=== PATIENT | female | born 1975 | race Caucasian/White ===

== ENCOUNTER 2016-07-02 00:50 | Emergency (ER) | payer BC ==
[~2016-07-02] VITALS: Ht 157.5 cm; Wt 58.6 kg
[~2016-07-02 00:50] MED LIST: MAGN250T3 PO; MISCCAP80 PO; MULTTAB58 PO
[2016-07-02 01:02] VITALS: TEMP 36.7; Ht 157.5 cm; Wt 58.6 kg
[2016-07-02] MEDS ORDERED: HYDROmorphone INJ 0.5 MG/0.5 ML SYR IV STA (01:10)
[2016-07-02] MEDS ORDERED: METOCLOPRAMIDE HCL INJ 5 MG/ML 2 ML VIAL IV STA (01:10)
[2016-07-02] MEDS ORDERED: ALUMINUM/MAGNESIUM SUSP 30 ML UDC PO STA (01:10)
[2016-07-02] MEDS ORDERED: SODIUM CHLORIDE 0.9% 1000ML 1,000 ML IV STA ×2 (01:10)
[2016-07-02] MEDS ORDERED: LIDOCAINE HCL 2% VISC SOLN 20 ML UDC PO STA (01:10)
[2016-07-02] MEDS ORDERED: AMIT10TA6 PO (01:42)
[2016-07-02] MEDS ORDERED: OPTIRAY 320 IV PRN (01:45)
[2016-07-02 01:46] LABS: BASO % 0.5 %; BASO ABS # 0.03 K/uL (0-0.2); COMPLETE YES; EOS % 1.9 %; HEMATOCRIT 38.6 % (37-47); LYMPH ABS # 0.74 K/uL (1.2-3.4); MEAN CELL VOLUME 88.9 fL (80-100); MEAN CORPUSCULAR HEMOGLOBIN 31.3 pg (25-34); MEAN CORPUSCULAR HGB CONC 35.2 g/dl (32-36); MEAN PLATELET VOLUME 9.8 fL (7.4-10.4); MONO % 6.5 %; NEUT % 78.1 %; PLATELET COUNT 203 K/uL (130-400); RED BLOOD COUNT 4.34 M/uL (4.2-5.4); WHITE BLOOD COUNT 5.71 K/uL (4.8-10.8)
[2016-07-02 01:50] VITALS: O2SAT 100
[2016-07-02 02:09] LABS: ALT/SGPT 21 U/L (12-78); AST/SGOT 12 U/L (15-37); BLOOD UREA NITROGEN 19 mg/dl (7-18); BUN/CREATININE RATIO 21.6 (10-20); CALCIUM 8.8 mg/dl (8.5-10.1); CARBON DIOXIDE 26 mmol/L (21-32); CHLORIDE 110 mmol/L (98-107); GLUCOSE 116 mg/dl (70-99); POTASSIUM 4.1 mmol/L (3.5-5.1); SODIUM 143 mmol/L (136-145)
[2016-07-02 02:12] LABS: ALKALINE PHOSPHATASE 56 U/L (45-117)
[2016-07-02 02:28] LABS: URINE APPEARANCE CLOUDY (CLEAR); URINE BILIRUBIN NEG (NEG); URINE COLOR YELLOW; URINE EPITHELIAL CELL AUTO >30 /lpf (0-5); URINE NITRITE NEG (NEG); URINE PH 6.5 (4.5-7.5); URINE SPECIFIC GRAVITY 1.018 (1.000-1.030); UROBILINOGEN NEG (NEG)
[2016-07-02 02:29] LABS: MANUAL MICROSCOPIC REQUIRED? NO; REVIEW REQ? YES
[2016-07-02 02:32] LABS: PREG INTERNAL NEGATIVE QC NEG CLEAR BACKGROUND; PREG INTERNAL POSITIVE QC POS CONTROL LINE
--- NOTE | 2016-07-02 03:21 | EMERGENCY ROOM VISIT NOTE ---
History First contact with patient: 01:07 Chief Complaint: ABDOMINAL PAIN Stated Complaint: SEVERE STOMACH CRAMPS,NAUSEA History of Present Illness The patient is a 41 year old female who presents to the Emergency Room with complaints of nausea, abdominal pain for the past day who is a history of bowel obstructions and symptoms of similar. Patient had multiple abdominal surgeries. She distress and his cramping, ranging in severity 8 out of 10 to the upper abdomen. Patient denies chest pain, dyspnea, fever, chills, vomiting , diarrhea, back pain, urinary symptoms. Nothing makes the pain better or worse. It does not radiate. Review of Systems See HPI for pertinent positives & negatives. A total of 10 systems reviewed and were otherwise negative. Past Medical/Surgical History Medical Problems: (1) Endometriosis (2) Kidney stones (3) Neutropenia (4) Partial small bowel obstruction Surgical Problems: (1) History of appendectomy (2) History of cholecystectomy (3) History of hysterectomy (4) History of tonsillectomy (5) [place] teeth extracted Family History Diabetes mellitus FHx: cancer FHx: heart disease FHx: lung disease Hypertension Seizures Social History Smoking Status: Former Smoker Alcohol Use: occasionally Drug Use: none Marital Status: Occupation Status: employed Current/Historical Medications Scheduled Amitriptyline Hcl (Elavil), 10 MG PO HS Magnesium (Magnesium 250 mg), 1 TAB PO DAILY Multiple Vitamin (Multivitamin), 1 TAB PO DAILY Probiotic Product (Probiotic), 1 CAP PO DAILY Allergies Coded Allergies: No Known Allergies (Unverified , 07/02/16) Physical Exam Vital Signs Date Time Temp Pulse Resp B/P Pulse Ox O2 Delivery O2 Flow Rate FiO2 07/02/16 03:00 68 18 93/65 96 Room Air 07/02/16 01:50 77 07/02/16 01:50 100 Room Air 07/02/16 01:02 36.7 104 20 130/86 98 Room Air Physical Exam VITALS: Vitals are noted on the nurse's note and reviewed by myself. Vital signs stable. GENERAL: Pleasant female, in no acute distress, nondiaphoretic, well-developed well-nourished. SKIN: The skin was without rashes, erythema, edema, or bruising. There is no tenting of the skin. Capillary reflex less than 2 seconds. HEAD: Normocephalic atraumatic. EARS: External auditory canals clear, tympanic membranes pearly tran without erythema or effusion bilaterally. EYES: Pupils equal round and reactive to light and accommodation. Conjunctivae without injection, sclerae without icterus. Extraocular movements intact. NOSE: Patent, turbinates without inflammation or discharge. MOUTH: Mucous membranes moist. Pharynx without erythema or exudate. Uvula midline. Airway patent. Tongue does not deviate. NECK: Supple without nuchal rigidity. No lymphadenopathy. No thyromegaly. Cervical spine is nontender. No JVD. HEART: Regular rate and rhythm without murmurs gallops or rubs. LUNGS: Clear to auscultation bilaterally without wheezes, rales or rhonchi. No dullness to percussion. No retractions or accessory muscle use. ABDOMEN: Positive bowel sounds x 4. Normal tympanic percussion. Soft, tender to palpation periumbilical region, no CVA tenderness, without masses or organomegaly. [place] sign negative. No guarding or rebound tenderness. MUSCULOSKELETAL: No muscle atrophy, erythema, or edema noted. NEURO: Patient was alert and oriented to person place and time. Normal sensation to light and sharp touch. No focal neurological deficits. Medical Decision & Procedures Laboratory Results 07/02/16 01:30 Red Blood Count 4.34, Mean Corpuscular Volume 88.9, Mean Corpuscular Hemoglobin 31.3, Mean Corpuscular Hemoglobin Concent 35.2, Mean Platelet Volume 9.8, Neutrophils (%) (Auto) 78.1, Lymphocytes (%) (Auto) 13.0, Monocytes (%) (Auto) 6.5, Eosinophils (%) (Auto) 1.9, Basophils (%) (Auto) 0.5, Neutrophils # (Auto) 4.46, Lymphocytes # (Auto) 0.74, Monocytes # (Auto) 0.37, Eosinophils # (Auto) 0.11, Basophils # (Auto) 0.03 07/02/16 01:30 Test 07/02/16 01:30 07/02/16 01:38 07/02/16 01:52 White Blood Count 5.71 K/uL (4.8-10.8) Red Blood Count 4.34 M/uL (4.2-5.4) Hemoglobin 13.6 g/dL (12.0-16.0) Hematocrit 38.6 % (37-47) Mean Corpuscular Volume 88.9 fL (80-100) Mean Corpuscular Hemoglobin 31.3 pg (25-34) Mean Corpuscular Hemoglobin Concent 35.2 g/dl (32-36) Platelet Count 203 K/uL (130-400) Mean Platelet Volume 9.8 fL (7.4-10.4) Neutrophils (%) (Auto) 78.1 % Lymphocytes (%) (Auto) 13.0 % Monocytes (%) (Auto) 6.5 % Eosinophils (%) (Auto) 1.9 % Basophils (%) (Auto) 0.5 % Neutrophils # (Auto) 4.46 K/uL (1.4-6.5) Lymphocytes # (Auto) 0.74 K/uL (1.2-3.4) Monocytes # (Auto) 0.37 K/uL (0.11-0.59) Eosinophils # (Auto) 0.11 K/uL (0-0.5) Basophils # (Auto) 0.03 K/uL (0-0.2) RDW Standard Deviation 42.9 fL (36.4-46.3) RDW Coefficient of Variation 13.1 % (11.5-14.5) Immature Granulocyte % (Auto) 0.0 % Immature Granulocyte # (Auto) 0.00 K/uL (0.00-0.02) Anion Gap 7.0 mmol/L (3-11) Est Creatinine Clear Calc Drug Dose 66.4 ml/min Estimated GFR () 93.4 Estimated GFR (Non- 80.5 BUN/Creatinine Ratio 21.6 (10-20) Calcium Level 8.8 mg/dl (8.5-10.1) Total Bilirubin 0.4 mg/dl (0.2-1) Direct Bilirubin < 0.1 mg/dl (0-0.2) Aspartate Amino Transf (AST/SGOT) 12 U/L (15-37) Alanine Aminotransferase (ALT/SGPT) 21 U/L (12-78) Alkaline Phosphatase 56 U/L (45-117) Total Protein 7.0 gm/dl (6.4-8.2) Albumin 4.2 gm/dl (3.4-5.0) Lipase 162 U/L (73-393) Human Chorionic Gonadotropin, Qual NEG (NEG) Bedside Lactic Acid Venous 0.47 mmol/L (0.90-1.70) Urine Color YELLOW Urine Appearance CLOUDY (CLEAR) Urine pH 6.5 (4.5-7.5) Urine Specific [place] 1.018 (1.000-1.030) Urine Protein NEG (NEG) Urine Glucose (UA) NEG (NEG) Urine Ketones 2+ (NEG) Urine Occult Blood NEG (NEG) Urine Nitrite NEG (NEG) Urine Bilirubin NEG (NEG) Urine Urobilinogen NEG (NEG) Urine Leukocyte Esterase NEG (NEG) Urine WBC (Auto) 1-5 /hpf (0-5) Urine RBC (Auto) 0-4 /hpf (0-4) Urine Hyaline Casts (Auto) 1-5 /lpf (0-5) Urine Epithelial Cells (Auto) >30 /lpf (0-5) Urine Bacteria (Auto) 1+ (NEG) Urine Crystals CALCIUM OXALATE (NONE Medications Administered Medications (Trade) Dose Ordered Sig/Kerry Route Start Time Stop Time Status Last Admin Dose Admin Lidocaine HCl (Viscous Lidocaine 2% Soln) 10 ml NOW STAT PO 07/02/16 01:10 07/02/16 01:12 DC 07/02/16 01:46 10 ML Al Hydroxide/Mg Hydroxide (Maalox Susp) 30 ml NOW STAT PO 07/02/16 01:10 07/02/16 01:12 DC 07/02/16 01:46 30 ML Metoclopramide HCl 10 mg 10 mg NOW STAT IV 07/02/16 01:10 07/02/16 01:12 DC 07/02/16 01:47 10 MG Sodium Chloride 1,000 ml @ 999 mls/hr Q1H1M STAT IV 07/02/16 01:10 07/02/16 02:10 DC 07/02/16 01:47 999 MLS/HR Sodium Chloride (Nss 1000ml) 1,000 ml @ 125 mls/hr Q8H STAT IV 07/02/16 01:10 07/02/16 09:09 07/02/16 01:10 125 MLS/HR Hydromorphone HCl (Dilaudid Inj) 0.5 mg NOW STAT IV 07/02/16 01:10 07/02/16 01:13 DC 07/02/16 01:48 0.5 MG ED Course Prior records/ancillary studies reviewed. Triage Nursing notes reviewed. Additional history obtained from family. The patient's history was concerning for abdominal pain. Differential diagnosis: Etiologies such as appendicitis, diverticulitis, PUD, biliary pathology, UTI, pancreatitis, obstruction, mesenteric ischemia, aortic pathology, infections, inflammatory bowel disease, renal colic, as well as others were entertained. Physical examination findings: As above. ER treatment provided: Dilaudid, Zofran, IV fluids On reassessment the patient felt better. Diagnostics interpreted by me: The labs revealed no worrisome leukocytosis. Negative lactic acid. Mild hyperglycemia without DKA Imaging studies: CT ABDOMEN & PELVIS: Compared to CT abdomen and pelvis 02/10/2016 Limited by lack of intra-abdominal fat and lack of oral contrast. The distal small bowel and proximal colon are distended with air and fluid which may be due to ileus or enterocolitis. No evidence of bowel obstruction. The appendix is not reliably identified and may be surgically absent. Cholecystectomy. No CT evidence of acute pancreatitis. No urinary obstruction. Trace pelvic free fluid. No free air. Radiologist: Taisha Stover M.D. Acute abdominal series with no obvious obstruction, free air or pneumothorax per my interpretation Exam and history seem consistent with enterocolitis. Patient felt much better and was able to tolerate fluids. No bowel obstruction. She is advised to rest , stay well-hydrated and to Zofran as needed for nausea. She is advised follow- up with family care in a few days or here in the ER sooner for abdominal pain, fevers, vomiting, worsening signs or symptoms or as needed.By the evaluation outlined above emergent etiologies such as appendicitis, diverticulitis, PUD, biliary pathology, UTI, pancreatitis, obstruction, mesenteric ischemia, aortic pathology, infections, inflammatory bowel disease, renal colic, as well as others were deemed relatively unlikely. The pt informed about the findings as listed above. All questions were answered and pleased with the treatment. Return instructions were outlined and the patient was discharged in stable condition. Outpatient prescription management: zofran Referral: The patient was referred back to their primary care physician for follow-up in 2 to 3 days for a recheck of the current condition. Case reviewed with my attending Medical Decision As above Impression Primary Impression: Enterocolitis Departure Information Dispostion Home / Self-Care Condition GOOD Referrals Pérez Edwards MD (PCP) Patient Instructions My [facility] Additional Instructions DO NOT drive, drink alcohol, operate machinery, or perform dangerous activities today. You were given medications in the ER that can affect your ability to safely function or operate a vehicle. Zofran(odansetron) tablets 4mg: Take one and allow it to dissolve in your mouth every four to six hours as needed for nausea or vomiting. Ibuprofen(Motrin, Advil) may be used for fever or pain. Use 600mg every six hours as needed. Take with food. Avoid using more than 2400mg in a 24 hour period. Do not use 2400mg per day for more than three consecutive days without physician direction. Prolonged inappropriate use can lead to stomach upset or ulcers. (AND/OR) Acetaminophen(Tylenol) may be used for fever or pain. Use 1000mg every six hours as needed. Avoid using more than 3000mg in a 24 hour period. Rest and drink plenty of fluids as tolerated. Slow sips of water or sports drinks are recommended instead of large amounts all at once. Continue current medications. Once your stomach is settled start with a clear liquid diet (jello, soup broth, etc.) and then advance as tolerated. You should avoid full, heavy meals for about 24 hrs from the time your symptoms resolved. Return to the ER for persistent vomiting, fevers, abdominal pain, chest pains, difficulty breathing, black or bloody stools, worsening of your condition, or as needed. Follow up with your primary physician in 2-3 days for a recheck of your current condition.
[2016-07-02] MEDS ORDERED: ONDANSETRON HOME PACK 4MG OD TAB PO ONE (03:30)
[2016-07-02] MEDS ORDERED: OXYCODONE IR HOME PACK PO ONE (03:30)
[2016-07-02 03:35] VITALS: BP 111/69; PULSE 95; O2SAT 98
--- NOTE | 2016-07-02 08:04 | DIAGNOSTIC IMAGING REPORT ---
CT SCAN OF THE ABDOMEN AND PELVIS WITH IV CONTRAST CLINICAL HISTORY: Generalized abdominal pain. COMPARISON STUDY: Abdominal CT dated 02/10/2016. TECHNIQUE: Following the IV administration of 93 cc of Optiray 320, CT scan of the abdomen and pelvis is performed from the lung bases to the proximal femora. Images are reviewed in the axial, sagittal, and coronal planes. IV contrast was administered without complication. Automated dose control exposure was utilized. CT DOSE: 270.53 mGy.cm FINDINGS: Lung bases: The heart is normal in size and without pericardial effusion. There is a tiny fat-containing Bochdalek hernia at the right lung base. The lung bases are otherwise clear. Liver: The contrast-enhanced liver is normal in size, contour, and attenuation. There is no intrahepatic biliary ductal dilatation. The hepatic veins and portal veins are patent. Gallbladder: Surgically absent noting clips in the gallbladder fossa. Spleen: Normal in size and attenuation. Pancreas: Unremarkable. Adrenal glands: Unremarkable. Kidneys: The contrast enhanced kidneys are normal in size and without hydronephrosis. The kidneys enhance symmetrically. A 10 mm hypodensity in the lower pole the right kidney likely absence a cyst but is too small for definitive characterization. Abdominal vasculature: The abdominal aorta is normal in course and caliber. Bowel: The small bowel and colon are normal in course and caliber. There is moderate colonic fecal retention. Liquid stool is noted in the right colon. The appendix is not identified and reported surgically absent. Peritoneum: There is no intraperitoneal free air or abdominal ascites. There is a small fat-containing umbilical hernia. Lymphadenopathy: None. Pelvic viscera: The bladder is partially decompressed and grossly unremarkable. The uterus is surgically absent. No adnexal lesion is seen. There is a small volume of free fluid in the cul-de-sac. Skeletal structures: No lytic or blastic lesions are seen. IMPRESSION: 1. There is liquid stool noted throughout the right colon. Correlate clinically for evidence of a diarrheal illness. 2. Status post hysterectomy, cholecystectomy, and appendectomy. 3. There is free fluid in the cul-de-sac, likely within physiologic limits. Electronically signed by: Aneesh Cao M.D. 07/02/2016 8:02 AM Dictated Date/Time: 07/02/2016 7:57 AM
--- NOTE | 2016-07-02 08:20 | DIAGNOSTIC IMAGING REPORT ---
CHEST AND ABDOMEN 2 VIEWS HISTORY: Generalized abdominal pain. COMPARISON: [facility] 02/12/2016. FINDINGS: The lungs are clear. The cardiomediastinal silhouette is within normal limits. There is no pneumoperitoneum or pneumatosis. No pathologic calcifications. Cholecystectomy. Multiple small fluid levels throughout the nondistended colon. There are few borderline dilated air and fluid-filled loops of small bowel within the left upper quadrant. IMPRESSION: 1. No acute process within the chest. 2. Borderline dilated air and fluid-filled loops of small bowel within the left upper quadrant. There are also multiple fluid levels throughout the nondistended colon. This is nonspecific and could represent a mild ileus or gastroenteritis. Electronically signed by: Eliot Fabian M.D. 07/02/2016 8:18 AM Dictated Date/Time: 07/02/2016 8:15 AM
== END 2016-07-02 03:35 | disposition home or self-care (01) ==
LOC: C.EDB 00:52
DX: K52.9 Noninfective gastroenteritis and colitis, unspecified (principal); Z90.49 Acquired absence of other specified parts of digestive tract; Z87.891 Personal history of nicotine dependence

== ENCOUNTER → 2017-05-31 | Outpatient (CLI) | payer BC ==
[~2017-05-31] MED LIST changes: +AMIT10TA6 PO
--- NOTE | 2017-05-31 10:21 | DIAGNOSTIC IMAGING REPORT ---
[facility] CLINICAL HISTORY: 42 years-old Female presenting with R10.9,Z87.19, history of small bowel obstruction, abdominal pain over the past couple days, history of multiple abdominal surgeries. TECHNIQUE: Single supine view of the abdomen was obtained. COMPARISON: 07/02/[address] from 07/02/2016. FINDINGS: Gas noted throughout the large bowel. No evidence of bowel obstruction. No gross evidence of pneumoperitoneum. Cholecystectomy clips noted. Allowing for bowel gas and stool, no calcifications project over the renal shadows to suggest calculi. No calcifications along the course of the ureters. Osseous structures normal. Lung bases clear. IMPRESSION: 1. No acute intra-abdominal pathology. Electronically signed by: Jethro Denis M.D. 05/31/2017 10:20 AM Dictated Date/Time: 05/31/2017 10:18 AM
[2017-05-31 10:26] LABS: MEAN CELL VOLUME 91.3 fL (80-100); MEAN CORPUSCULAR HEMOGLOBIN 32.2 pg (25-34); MEAN CORPUSCULAR HGB CONC 35.3 g/dl (32-36); MEAN PLATELET VOLUME 9.6 fL (7.4-10.4); PLATELET COUNT 193 K/uL (130-400); RED BLOOD COUNT 4.38 M/uL (4.2-5.4); WHITE BLOOD COUNT 1.37 K/uL (4.8-10.8)
[2017-05-31 10:42] LABS: ALT/SGPT 14 U/L (12-78); AST/SGOT 9 U/L (15-37); BLOOD UREA NITROGEN 14 mg/dl (7-18); BUN/CREATININE RATIO 14.8 (10-20); CALCIUM 9.1 mg/dl (8.5-10.1); CARBON DIOXIDE 25 mmol/L (21-32); CHLORIDE 107 mmol/L (98-107); CREATININE 0.95 mg/dl (0.60-1.20); GLUCOSE 83 mg/dl (70-99); SODIUM 138 mmol/L (136-145)
[2017-05-31 10:44] LABS: ALB/GLOB RATIO 1.2 (0.9-2); ALKALINE PHOSPHATASE 57 U/L (45-117)
[2017-05-31 10:57] LABS: BASO % 2.9 %; BASO ABS # 0.04 K/uL (0-0.2); COMPLETE YES; EOS % 3.6 %; LYMPH % 56.2 %; LYMPH ABS # 0.77 K/uL (1.2-3.4); MONO % 18.2 %; NEUT % 19.1 %
== END | disposition home or self-care (01) ==
LOC: C.RAD 09:25
PROVIDERS: ATTEND Nurse Practitioner Family
DX: R10.9 Unspecified abdominal pain (principal); Z87.19 Personal history of other diseases of the digestive system

== ENCOUNTER → 2017-06-14 | Outpatient (CLI) | payer BC ==
--- NOTE | 2017-06-15 15:00 | MAMMOGRAPHY REPORT ---
BILATERAL DIGITAL DIAGNOSTIC MAMMOGRAM TOMOSYNTHESIS WITH CAD AND TARGETED LEFT ULTRASOUND: 06/14/2017 CLINICAL HISTORY: 42-year-old woman presents with a palpable lump in the left retroareolar breast. F amily history of breast cancer = mother (premenopausal). TECHNIQUE: Bilateral breast tomosynthesis in addition to standard 2D mammography was performed. Curre nt study was also evaluated with a Computer Aided Detection (CAD) system. COMPARISON: Comparison is made to exams dated: 01/09/2015 ultrasound, 01/09/2015 mammogram, and 12/18/19 15 mammogram - [facility]. BREAST COMPOSITION: The tissue of both breasts is heterogeneously dense, which may obscure small mass es. FINDINGS: A triangle shaped palpable marker overlies the 4:00 periareolar/retroareolar left breast, d enoting the palpable lump pointed out by the patient. There are multiple bilateral partially circums cribed and obscured masses in both breasts, the largest of which are seen in the left upper outer erika drant. In the area of palpable concern in the anterior, retroareolar left breast, there is a possibl e 2.3 cm mass. Loosely grouped microcalcifications are are scattered bilaterally, most numerous in t he 6:00 axes of each breast. Previous spot magnification views demonstrated layering of nearly all o f the microcalcifications, confirming benign milk of calcium. No obvious spiculated or irregular mas s, focal area of architectural distortion or new suspicious calcifications are seen. Real-time high-resolution sonographic evaluation was performed in the area of palpable lump pointed o ut by the patient, within the 4:00 periareolar/retroareolar left breast. There is a circumscribed, o jinny, nearly anechoic 23.7 x 14.2 x 24.4 mm mass with posterior acoustic enhancement and numerous inte rnal mobile punctate reflectors likely representing debris. This is most compatible with a complicat ed cyst. Additional scanning performed throughout the left lateral breast demonstrates numerous josey tional completely anechoic cysts. In particular, in the 1:00 left breast, 4 cm from the nipple, ther e is a lobulated anechoic parallel cyst measuring 21.2 x 7.5 x 17.6 mm. Another large oval parallel anechoic cyst in the 2:00 left breast, 7 cm from the nipple, measures 28.1 x 7.7 x 31.4 mm. This cys t has an internal nonvascular septation. In the 2:00 left breast, 2 cm from the nipple, there is a s uperficial oval parallel anechoic cyst measuring 11.9 x 6.2 mm, and in the 1:00 left breast, 1 cm fro m the nipple a predominately anechoic cyst within internal nonvascular septation measures 18.1 x 6.5 mm. A few other subcentimeter cysts are also seen in the lower outer quadrant of the left breast. IMPRESSION: ACR BI-RADS CATEGORY 4: SUSPICIOUS, TARGETED ULTRASOUND ACR BI-RADS CATEGORY 4: SUSPICIO US 1. The palpable lump in the anterior retroareolar left breast correlates with a probable complicated cyst on ultrasound measuring 24.4 mm. The internal punctate reflectors within the suspected cyst ar e seen to be mobile on real-time ultrasound, but definitive characterization with ultrasound guided c yst aspiration and analysis of the fluid is recommended. 2. There are other anechoic cysts scattered throughout the left breast on ultrasound, and circumscri bed masses bilaterally seen mammographically, most likely representing benign fibrocystic changes and numerous bilateral cysts. 3. There is no mammographic evidence of malignancy in the right breast. These results and recommendations were discussed with the patient at the time of the exam. She tenta tively scheduled the left breast cyst aspiration prior to leaving our department. Approximately 10% of breast cancers are not detected with mammography. A negative mammographic report should not delay biopsy if a clinically suggestive mass is present. Yohana Rojas M.D. ay/:06/14/2017 14:04:39 Maintainability Engineer: Kecia LÓPEZ(Richard)(M), [facility] letter sent: Abnormal 4/5 BI-RADS Code: ACR BI-RADS Category 4: Suspicious Ultrasound BI-RADS: ACR BI-RADS Category 4: Suspici ous
== END | disposition home or self-care (01) ==
LOC: C.MAMM 10:37
PROVIDERS: ATTEND Nurse Practitioner
DX: N63.20 Unspecified lump in the left breast, unspecified quadrant (principal)

== ENCOUNTER → 2017-06-16 | Outpatient (CLI) | payer BC ==
--- NOTE | 2017-06-16 12:45 | MAMMOGRAPHY REPORT ---
ASPIRATION LEFT BREAST: 06/16/2017 CLINICAL HISTORY: Patient presents for aspiration of a palpable cyst with suspected internal debris i n the 4:00 retroareolar left breast. COMPARISON: Comparison is made to exams dated: 06/14/2017 ultrasound, 06/14/2017 mammogram, 01/09/2015 ul trasound, 01/09/2015 mammogram, and 12/17/2014 mammogram - [facility]. PATIENT CONSENT: After explaining the risks, benefits and alternatives of the procedure to the patien t, informed consent was obtained verbally and in writing. Specific risks include: bleeding, infection and puncture of adjacent structure. A time out was preformed and the left breast was agreed as the s ite for cyst aspiration. PROCEDURE DESCRIPTION: The hypoechoic cystic appearing mass with probable internal debris in the 4:00 retroareolar left breast was identified. 1% lidocaine was administered subcutaneously and intraparen chymally as local anesthesia. A 22 gauge needle was advanced to the site of the mass. Aspiration was preformed and the mass resolved completely, confirming cystic nature. The fluid was clear and straw- colored. It was sent to the pathology department for cytologic analysis. Postprocedure left CC and ML tomosynthesis images were obtained, which demonstrated resolution of the previously observed palpable mass in the 4:00 subareolar left breast. IMPRESSION: ASPIRATION Status post aspiration to resolution of a palpable mass, suspected complicated cyst with internal barbra ris, in the 4:00 retroareolar left breast. The fluid was sent to the pathology department for cytolo gic analysis. The patient will receive notification of the results from her referring physician. Pending benign cy tology, recommend bilateral screening tomosynthesis mammography in one year. Yohana Rojas M.D. ay/:06/16/2017 10:01:45 Online [employer] F[employer] Coach: Kecia RAMÍREZ)(Gautam), [facility]
--- NOTE | 2017-06-16 12:45 | MAMMOGRAPHY REPORT ---
UNILATERAL LEFT DIGITAL DIAGNOSTIC MAMMOGRAM TOMOSYNTHESIS: 06/16/2017 CLINICAL HISTORY: Status post ultrasound guided cyst aspiration of a palpable cystic mass in the 4:00 retroareolar left breast. Please refer to the report from left breast ultrasound guided cyst aspiration performed at the same t loree for full detail. IMPRESSION: Please refer to the report from left breast ultrasound guided cyst aspiration performed at the same t loree for full detail. Approximately 10% of breast cancers are not detected with mammography. A negative mammographic report should not delay biopsy if a clinically suggestive mass is present. Yohana Rojas M.D. ay/:06/16/2017 08:28:59 Scientific Informatics Leader: Kecia RAMÍREZ)(M), [facility] BI-RADS Code: n/a
== END | disposition home or self-care (01) ==
LOC: C.MAMM 08:03
PROVIDERS: ATTEND Nurse Practitioner
DX: N63.20 Unspecified lump in the left breast, unspecified quadrant (principal); N60.82 Other benign mammary dysplasias of left breast